=== PATIENT | female | born 1965 | race Caucasian/White ===

== ENCOUNTER 2019-02-18 22:40 | Emergency (ER) | payer OTHER ==
[~2019-02-18] VITALS: Ht 177.8 cm; Wt 84.1 kg
[2019-02-18 22:42] VITALS: BP 154/90
[2019-02-18] MEDS ORDERED: PROPARACAINE OPHTH 0.5%, 15ML ONE (22:49)
[2019-02-18] MEDS ORDERED: FLUORESCEIN OPHTHALMIC 1 MG STRIP ONE (22:49)
--- NOTE | 2019-02-18 22:51 | NUR ---
PROCTOLOGIST: UNABLE TO COMPLETE VA'S D/T R EYE PAIN. ERP AWARE.
[2019-02-18] MEDS ORDERED: POLYTRIM OPHTH 10ML RIGHTEYE STA (23:05)
[2019-02-18] MEDS ORDERED: HYDROcodone/APAP 5/325 TABLET ONE (23:21)
[2019-02-18] MEDS ORDERED: HYDROcodone/APAP 5/325 TABLET PO ONE (23:30)
== END 2019-02-18 23:28 | disposition home or self-care (01) ==
LOC: ED 23:22
DX: S05.01XA Injury of conjunctiva and corneal abrasion without foreign body, right eye, initial encounter (principal); X58.XXXA Exposure to other specified factors, initial encounter; Y93.89 Activity, other specified; Y92.89 Other specified places as the place of occurrence of the external cause; Y99.8 Other external cause status
CPT/HCPCS: 99283

== ENCOUNTER → 2020-10-11 | Outpatient (CLI) | payer OTHER ==
[2020-10-11 08:45] LABS: ALBUMIN 3.8 g/dL (3.4-5.0); ANION GAP 5 mmol/L (5-15); CALCIUM 9.3 mg/dL (8.5-10.1); CHLORIDE 107 mmol/L (98-107); CREATININE 1.05 mg/dL (0.55-1.02)
== END | disposition home or self-care (01) ==
LOC: LAB 08:20
PROVIDERS: ATTEND Internal Medicine Endocrinology, Diabetes & Metabolism
DX: E21.2 Other hyperparathyroidism (principal)
CPT/HCPCS: 36415; 80069; 82306; 83970